=== PATIENT | female | born 1975 | race Caucasian/White ===

== ENCOUNTER 2023-04-10 17:00 | Emergency (ER) | payer OTHER, SELFPAY | END 2023-04-10 18:49 | disposition left against medical advice (07) | PROVIDERS: Emergency Provider Emergency Medicine | DX: L03.90 Cellulitis, unspecified (principal); Z53.21 Procedure and treatment not carried out due to patient leaving prior to being seen by health care provider ==

== ENCOUNTER 2023-09-21 21:59 | Emergency (ER) | payer OTHER, SELFPAY ==
--- NOTE | 2023-09-21 | ECG_ITS ---
Test Reason : RETHEM CHANGES Blood Pressure : / mmHG Vent. Rate : 089 BPM Atrial Rate : 089 BPM P-R Int : 170 ms QRS Dur : 082 ms QT Int : 402 ms P-R-T Axes : 073 017 052 degrees QTc Int : 489 ms Artifact in tracing Sinus rhythm with frequent Premature ventricular complexes Biatrial enlargement Anterior infarct , age undetermined Abnormal ECG No previous ECGs available Referred By: Generic ED Physician Electronically Signed By:AMARIS ARIAS
--- NOTE | ~2023-09-21 | CT_ITS ---
EXAMINATION: CT ANGIOGRAM CHEST, PE PROTOCOL CLINICAL INFORMATION: Pleuritic chest pain COMPARISON: None TECHNIQUE: Multidetector CT pulmonary angiography of the thorax was performed according to the pulmonary embolism protocol after intravenous administration of 99 mL of intravenous Omnipaque. Reformatted coronal and sagittal imaging was performed. 3-D MIP images performed at a dedicated separate workstation. This CT examination was performed using dose optimization techniques as appropriate, variously including the following: *Automated exposure control *Adjustment of mA and/or kV according to patient size (this includes techniques or standardized protocols for targeted exams where dose is matched to indication/reason for exam; i.e. extremities or head) *Use of iterative reconstruction technique DLP: 475 mGy-cm QUALITY: Overall Exam Quality: Poor. Pulmonary Arterial Enhancement: Suboptimal. Breath Hold: Suboptimal. Artifacts Impacting Image Quality: None. FINDINGS: VASCULAR: Heart: Normal in size. Coronary artery calcifications not present. Aorta: No thoracoabdominal aortic aneurysm. Three vessel arch. Pulmonary Artery: No filling defect is identified in the central or lobar pulmonary arterial branches to suggest pulmonary embolus. NONVASCULAR: THORAX: Thyroid Gland: The visualized thyroid gland is normal. Lymph Nodes: No supraclavicular, axillary, mediastinal or hilar lymphadenopathy is identified. Airways: The trachea and central bronchi are normal. Lungs: No airspace consolidation. No suspicious nodules or masses. Pleura: No pleural effusion. No pneumothorax. Upper Abdomen: Small hiatal hernia. Soft Tissues/Musculoskeletal: Right shoulder osteoarthritis. CT/CT angio chest PE protocol IMPRESSION: 1. Suboptimal PE study due to poor pulmonary artery enhancement. No pulmonary embolism within the central lobar pulmonary arteries. More distal branches cannot be evaluated. 2. No acute thoracic findings. Fleischner guidelines were followed.
--- NOTE | ~2023-09-21 | XR_ITS ---
EXAMINATION: XR CHEST, 2 VIEWS CLINICAL INFORMATION: recent pna x1 month/continued chest pain COMPARISON: None. TECHNIQUE: PA and lateral views of the chest were obtained. FINDINGS: Excellent is borderline enlarged. Prominence of the pulmonary vasculature markings may correspond to pulmonary venous congestion or bronchovascular thickening related to bronchial inflammation. No focal airspace consolidation. No pneumothorax or pleural effusion. No acute osseous findings. XR/XR chest 2V IMPRESSION: 1. Borderline enlarged cardiac silhouette. 2. .Prominence of the pulmonary vasculature markings may correspond to pulmonary venous congestion or bronchovascular thickening related to bronchial inflammation. No focal airspace consolidation.
[2023-09-21 22:04] VITALS: BP 152/100; PULSE 66; RESP 16; TEMP 36.6; O2SAT 93; BMI 39.9
[2023-09-21 22:39] LABS: MANUAL DIFF FLAG NO
[2023-09-21 22:40] LABS: Basophils Percent Auto 0.3 % (0-2); Eosinophils Absolute Auto 0.1 X10*3/uL (0.0-0.4); Eosinophils Percent Auto 1.9 % (0-4); Hematocrit 38.8 % (37.0-47.0); Hemoglobin 12.2 g/dl (12.0-16.0); Imm Gran Abs Auto 0.03 X10*3/uL (0.00-0.03); Imm Gran Pct Auto 0.4 % (0.0-0.4); Lymphocytes Absolute Auto 2.4 X10*3/uL (1.2-4.9); Lymphocytes Percent Auto 35.4 % (20-40); Mean Corpuscular HGB Conc 31.4 g/dl (31.0-35.0); Mean Corpuscular Hemoglobin 28.9 pg (27.0-33.0); Mean Corpuscular Volume 91.9 fL (80.0-98.0); Monocytes Absolute Auto 0.3 X10*3/uL (0.1-1.2); Neutrophils Absolute Auto 3.9 x10*3/uL (2.0-8.3); Platelet Count 338 X10*3/uL (160-400); Red Blood Count 4.22 X10*6/uL (4.20-5.50); Red Cell Distribution Width 15.5 % (11.0-16.0); White Blood Count 6.8 X10*3/uL (4.8-10.8)
[2023-09-21 22:53] LABS: Alanine Aminotransferase 22 U/L (0-31); Albumin Level 3.8 g/dL (3.5-5.0); Alkaline Phosphatase 84 U/L (39-117); Anion Gap 13 (12-20); Aspartate Amino Transferase 17 U/L (5-31); Bilirubin Total 0.2 mg/dL (0.0-1.0); Blood Urea Nitrogen 14 mg/dL (9-16); Calcium 9.7 mg/dL (8.4-10.2); Carbon Dioxide 26 mmol/L (22-29); Chloride 105 mmol/L (96-108); Estimated Glomerular Filt Rate > 60; Glucose Random 107 mg/dL (60-115); Potassium 4.2 mmol/L (3.3-5.1); Sodium 140 mmol/L (135-145); Total Protein 7.1 g/dL (6.5-8.0)
[2023-09-21 23:34] VITALS: BP 122/69; PULSE 86; RESP 20; TEMP 36.8; O2SAT 94
--- NOTE | 2023-09-21 23:55 | ED.GENADULT ---
HPI - General Adult General Chief complaint: General Medical Stated complaint: pneumonia Time Seen by Provider: 09/21/23 23:36 Source: patient Mode of arrival: ambulatory Limitations: no limitations History of Present Illness ED Provider: Dr. Eduardo Meza HPI narrative: 48-year-old female with a history of PCOS, sleep apnea, pneumonia, cholecystectomy 1 week prior who presents emergency department for evaluation of right-sided pleuritic chest pain. She states the pain started shortly after getting her cholecystectomy. She describes the pain is a constant, stabbing soreness which is worse with breathing. Patient states she has a cough which is productive of yellow sputum and rhinorrhea. She has shortness of breath and dyspnea on exertion. She states that her symptoms feel similar to when she had pneumonia 3 months ago. She states she was treated with a 10 day course of doxycycline but believes that she never completely recovered from the pneumonia. She denied fever, chills, nausea, vomiting, diarrhea, myalgias arthralgias Related Data Previous Rx's ?Medication ?Instructions ?Recorded albuterol sulfate 90 mcg/actuation 2 puff inhalation Q4-6H PRN 09/22/23 aerosol inhaler shortness of breath or wheezing #8.5 grams amoxicillin 500 mg capsule 1,000 mg (2 x 500 mg) PO TID 5 09/22/23 days #30 caps Allergies Allergy/AdvReac Type Severity Reaction Status Date / Time ciprofloxacin [From Cipro] Allergy Itching Verified 09/21/23 22:05 latex Allergy Irritable Verified 09/21/23 22:05 metronidazole [From Flagyl] Allergy Itching Verified 09/21/23 22:05 Sulfa (Sulfonamide Allergy Itching Verified 09/21/23 22:05 Antibiotics) Review of Systems Review of Systems: Yes all other systems are reviewed and are negative [facility] Past Medical History [facility] Narrative: Social history: Patient states she was living in the [facility] and recently moved to [place]. She smokes 1 pack of cigarettes per day times 30 years. She denies alcohol and drug use. Social History Social History Alcohol intake: never Smoked in Last 30 Days: Yes Use of substances other than those prescribed or required for medical reasons: No Advance Directives: No Advance Directives Information Provided: No Do you have a plan to hurt others: No Plan Patient : No Physical Exam ED Vital Signs: Vital Signs - 24 hr 09/21/23 22:04 09/21/23 23:34 09/22/23 00:17 Temperature 98 F 98.3 F Pulse Rate 66 86 82 Respiratory Rate 16 20 20 Blood Pressure 152/100 H 122/69 Pulse Oximetry 93 94 Oxygen Delivery Method Room Air Room Air 09/22/23 02:06 Temperature 97.8 F Pulse Rate 90 Respiratory Rate 20 Blood Pressure 142/84 H Pulse Oximetry 93 Oxygen Delivery Method Room Air BMI result Body Mass Index 39.9 Vital signs revealed elevated blood pressure 152/100 otherwise unremarkable Exam: General: Awake, alert in no distress, weight 108.8 kg, elevated BMI 39.9 kg per m2 Head: Normocephalic, atraumatic EENT: PERRL, Lids normal, sclera normal, conjunctiva normal, nose normal , ears normal, throat without erythema or exudates Neck: Supple, no adenopathy Lung: breath sounds symmetric, diffuse wheezing, rales at the bases, no rhonchi Chest: symmetric movement, right anterior chest and lateral chest wall tenderness Heart: regular rate and rhythm, normal S1, S2 no murmurs or rubs Abdomen: soft, non-tender, nondistended, normal bowel sounds, obese, laparoscopic puncture sites are intact with no increased tenderness or drainage of fluid Back: no vertebral tenderness, no CVAT Extremities: no deformities, moves all extremities symmetrically Neuro: Awake, alert, oriented, normal speech, cranial nerves intact, moves all extremities symmetrically Psych: Pleasant, cooperative Medications Administered Discontinued Medications Generic Name Dose Route Start Last Admin Trade Name Freq PRN Reason Stop Dose Admin Albuterol Sulfate 2.5 mg/ 0 mg 09/22/23 00:08 09/22/23 00:15 Albuterol/Ipratropium 3 ml INHALE 09/22/23 00:09 5 dose ONCE ONE Administration Sodium Chloride 1,000 mls @ 999 mls/hr 09/21/23 23:55 09/22/23 00:13 Ns IV 09/22/23 00:55 999 mls/hr .Q1H1M STA Administration Iohexol 85 ml 09/22/23 00:46 09/22/23 00:47 Iohexol 350 Mg/Ml 100 Ml Infus..Btl IV 09/22/23 00:47 85 ml ONCE ONE Administration Medical Decision Making Medical Decision Making MDM Narrative: 48-year-old female with a history of PCOS, sleep apnea, cholecystectomy 1 week prior presents emergency department for evaluation of right-sided pleuritic chest pain, productive cough, shortness of breath, dyspnea on exertion with symptoms starting after cholecystectomy. Patient states her symptoms feel similar to when she had pneumonia 3 months ago, she completed a 10 day course of doxycycline and states that she never completely recovered. Vital signs revealed an elevated blood pressure. Physical examination revealed elevated BMI 39.9, right-sided chest wall tenderness, diffuse wheezing and rales at the bases on my exam. Differential diagnosis: ?Includes but is not limited to pneumonia, bronchitis, pulmonary embolism, pleurisy, pleural effusion, anemia, electrolyte abnormalities, viral syndrome, COVID-19, influenza, RSV Following evaluation was ordered: CBC, CMP, D-dimer, PT/INR, PTT, chest x-ray two view, EKG, CT angiogram pulmonary embolism protocol Patient was initially treated with the following: IV insert, cardiac monitoring, O2 saturation monitoring, normal saline x1 L IV, bronchodilator protocol Course: 01:24 My interpretation patient's laboratory evaluation as follows: CBC was normal. PT/INR and PTT were normal. D-dimer elevated 817. CMP was normal. Chest x-ray two view revealed no acute findings on my interpretation, no acute infiltrates. Radiologist felt that the patient had increased pulmonary vascular markings consistent with venous congestion or bronchovascular thickening secondary bronchial inflammation but no acute airspace consolidations. 03:50 CT scan pulmonary angiogram PE protocol did not reveal any large pulmonary emboli, lungs also appeared to be normal with no acute infiltrates. I did discuss this finding with the patient. At this time I suspect that the patient has acute bronchitis. She did feel better after receiving a breathing treatment here in the emergency department. Patient was given amoxicillin 1000 mg orally. She was prescribed amoxicillin 1000 mg 3 times a day for 5 days and albuterol inhaler 2 puffs every 4 hours as needed for shortness of breath. She was given printed and verbal instructions and discharged home. Admission/Observation Consideration of admission/observation: Escalation of care including admission/observation considered Lab Data MDM Lab Attestation statement: I reviewed the patient's lab results. 09/21/23 22:35 09/21/23 22:35 Labs: Lab Results 09/21/23 09/22/23 09/22/23 Range/Units 22:35 00:12 02:07 WBC 6.8 (4.8-10.8) X10*3/uL RBC 4.22 (4.20-5.50) X10*6/uL Hgb 12.2 (12.0-16.0) g/dl Hct 38.8 (37.0-47.0) % MCV 91.9 (80.0-98.0) fL MCH 28.9 (27.0-33.0) pg MCHC 31.4 (31.0-35.0) g/dl RDW 15.5 (11.0-16.0) % Plt Count 338 (160-400) X10*3/uL MPV 11.0 (9.4-12.3) fL Immature Gran % (Auto) 0.4 (0.0-0.4) % Neut % (Auto) 57.0 (45-73) % Lymph % (Auto) 35.4 (20-40) % [place] % (Auto) 5.0 (2-11) % Eos % (Auto) 1.9 (0-4) % Baso % (Auto) 0.3 (0-2) % Lymph # (Auto) 2.4 (1.2-4.9) X10*3/uL [place] # (Auto) 0.3 (0.1-1.2) X10*3/uL Eos # (Auto) 0.1 (0.0-0.4) X10*3/uL Baso # (Auto) 0.0 (0.0-0.2) X10*3/uL Abs Immat Gran (auto) 0.03 (0.00-0.03) X10*3/uL Absolute Neuts (auto) 3.9 (2.0-8.3) x10*3/uL Absolute Nucleated RBC 0.000 (0.0-0.012) X10*3/uL Nucleated RBC % (auto) 0.0 (0.0-0.2) /100WBC PT 10.0 L (11.1-13.3) SEC INR 0.8 L (0.9-1.1) APTT 33.8 (26.0-36.8) SEC D-Dimer High Sensitivty 817 NG/ML Sodium 140 (135-145) mmol/L Potassium 4.2 (3.3-5.1) mmol/L Chloride 105 (96-108) mmol/L Carbon Dioxide 26 (22-29) mmol/L Anion Gap 13 (12-20) BUN 14 (9-16) mg/dL Creatinine 0.78 (0.5-1.4) mg/dL Estim Creat Clear Calc 107.0 Estimated GFR > 60 Random Glucose 107 (60-115) mg/dL Calcium 9.7 (8.4-10.2) mg/dL Total Bilirubin 0.2 (0.0-1.0) mg/dL AST 17 (5-31) U/L ALT 22 (0-31) U/L Alkaline Phosphatase 84 (39-117) U/L Total Protein 7.1 (6.5-8.0) g/dL Albumin 3.8 (3.5-5.0) g/dL Influenza Type A (PCR) NEGATIVE (Negative) Influenza Type B (PCR) NEGATIVE (Negative) RSV RNA Qual (PCR) NEGATIVE (Negative) SARS-CoV-2 RNA (RT-PCR) NEGATIVE (Negative) Independent Interpretation Interpretation: My independent interpretation patient's 12 EKG done at 23:26 hours is as follows: Normal sinus rhythm with PVCs with a rate of 89, normal NE interval, normal QRS duration with a prolonged QTC interval of 489 milliseconds. No significant T-wave abnormalities, poor R-wave progression V1 through V3. My independent interpretation patient's two view chest x-ray is as follows: No acute disease Radiology Impression Discussion of test interpretation with radiology: I have reviewed the radiologist's reading. Radiologist Impression: XR chest 2V IMPRESSION: 1. Borderline enlarged cardiac silhouette. 2. .Prominence of the pulmonary vasculature markings may correspond to pulmonary venous congestion or bronchovascular thickening related to bronchial inflammation. No focal airspace consolidation. Dictated By: Fabrice Avila MD CT angio chest PE protocol IMPRESSION: 1. Suboptimal PE study due to poor pulmonary artery enhancement. No pulmonary embolism within the central lobar pulmonary arteries. More distal branches cannot be evaluated. 2. No acute thoracic findings. Fleischner guidelines were followed. Dictated By: [place] Independent Historian Clinical information obtained from an independent historian. History obtained from or confirmed by: Other (Significant other) Prescription Management I considered prescription management with: Antibiotic and Other (Inhalers) Discharge Plan Discharge Clinical Impression: Acute bronchitis, Acute bronchospasm Patient Disposition: Home, Self-Care Instructions: Acute Bronchitis (ED) Additional Instructions: Your blood work was unremarkable. Your chest x-ray did not reveal any evidence for pneumonia. The CT pulmonary angiogram did not reveal any blood clots in your lungs (pulmonary emboli) or any evidence for pneumonia which is reassuring. Your symptoms are consistent with an infection of your breathing tubes (bronchitis) Take amoxicillin 500 mg pills, 2 pills 3 times a day (every 6 hours while you are awake) for 5 days Use the albuterol inhaler with the spacer, 2 puffs every 4-6 hours as needed for shortness of breath and wheezing. Follow-up with your doctor in 2 days. Please return to the emergency department if your symptoms get worse or if you develop any symptoms that are concerning to you. Prescriptions: New albuterol sulfate 90 mcg/actuation HFA aerosol inhaler 2 puff inhalation Q4-6H PRN (Reason: shortness of breath or wheezing) Qty: 8.5 0RF amoxicillin 500 mg capsule 1,000 mg PO TID 5 Days Qty: 30 0RF Print Language: Albanian
[2023-09-22] MEDS: 0.9 % Sodium Chloride 1,000 ML 999 ML IV (00:13)
[2023-09-22] MEDS: Albuterol Sulfate 2.5 MG, Albuterol/Iprat 2.5/0.5MG 3 ML 3 ML INHALE (00:15)
[2023-09-22 00:17] VITALS: PULSE 82; RESP 20; O2SAT 94
[2023-09-22 00:30] LABS: INTERNATIONAL NORM RATIO 0.8 (0.9-1.1)
[2023-09-22 00:32] LABS: D Dimer High Sensitivity 817 NG/ML; Partial Thromboplastin Time 33.8 SEC (26.0-36.8)
[2023-09-22] MEDS: iohexoL 350 MG/ML 100 ML INFUS..BTL 85 ML IV (00:47)
[2023-09-22 02:06] VITALS: BP 142/84; PULSE 90; RESP 20; TEMP 36.6; O2SAT 93
[2023-09-22 02:49] LABS: Influenza A PCR NEGATIVE (Negative); Influenza B PCR NEGATIVE (Negative); Resp Syncy Virus RNA Qual PCR NEGATIVE (Negative); SARS COV2 PCR INHOUSE NEGATIVE (Negative)
[2023-09-22 04:16] VITALS: BP 139/95; PULSE 91; RESP 20; TEMP 36.8; O2SAT 94
--- NOTE | 2023-09-22 04:47 | PC.NURSE ---
went to assist primary RN in administering meds. upon entering room it was noted that patient was not in room, leads on the floor, and IV also noted to be on the back of the bed. notified primary RN. meds returned.
[2023-09-22 06:27] VITALS: BP 139/95; PULSE 91; RESP 20; TEMP 36.8; O2SAT 94
== END 2023-09-22 04:30 | disposition home or self-care (01) ==
PROVIDERS: Emergency Provider Emergency Medicine Emergency Medical Services
DX: J20.9 Acute bronchitis, unspecified (principal); Z03.818 Encounter for observation for suspected exposure to other biological agents ruled out; R06.02 Shortness of breath; R05.9 Cough, unspecified; Z90.49 Acquired absence of other specified parts of digestive tract
CPT/HCPCS: 0241U; 36415; 71046; 71275; 80053; 85025; 85379; 85610; 85730; 93005; 94640; 99284; 99285; Q9967

== ENCOUNTER → 2023-09-21 23:26 | Outpatient (BNV) | payer OTHER, SELFPAY | PROVIDERS: Emergency Provider Emergency Medicine Emergency Medical Services; Visit Provider Internal Medicine | DX: I49.3 Ventricular premature depolarization (principal) | CPT/HCPCS: 93010 ==